=== PATIENT | female | born 1970 | race Caucasian/White ===

== ENCOUNTER → 2023-05-19 | Outpatient (CLI) | payer BC, MEDICARE ==
[2023-05-19 17:40] LABS: FREE T4 0.9 NG/DL (0.89-1.76); THYROID STIMULATING HORMONE 0.55 uIU/ML (0.55-4.78)
== END ==
LOC: M PLALAB 15:13
PROVIDERS: ATTEND Internal Medicine Endocrinology, Diabetes & Metabolism
DX: E04.2 Nontoxic multinodular goiter (principal)